=== PATIENT | male | born 1955 | race Caucasian/White ===

== ENCOUNTER 2019-12-31 00:08 | Inpatient (IN) | payer MEDICARE, MEDICAID ==
[~2019-12-31] VITALS: Ht 182.9 cm; Wt 89.4 kg
[2019-12-31 01:08] LABS: BASOPHILS % 0.8 % (0.0-2.0); EOSINOPHILS % 1.8 % (0.0-5.0); HEMATOCRIT. 29.5 % (42.0-52.0); HEMOGLOBIN. 10.1 g/dL (14.0-18.0); LYMPHOCYTES % 16.4 % (20.0-50.0); MEAN CORPUSCULAR VOLUME 93.6 fL (80.0-94.0); MONOCYTES % 9.6 % (2.0-8.0); NEUTROPHILS % 71.4 % (40.0-76.0); PLATELET 147 x1000/uL (130-400); RED BLOOD CELL COUNT 3.15 mill/uL (4.7-6.1); RED CELL DISTRIBUTION WIDTH 14.5 % (11.6-14.6)
[2019-12-31 01:09] LABS: CHLORIDE 119 mEq/L (98-107)
[2019-12-31 01:13] LABS: ETHANOL BLOOD < 10 mg/dL
[2019-12-31 02:25] LABS: CLARITY URINE CLOUDY (CLEAR); COLOR URINE YELLOW (YELLOW); KETONES URINE NEGATIVE (NEGATIVE); LEUKOCYTE ESTERASE URINE 2+ (NEGATIVE); NITRITE URINE NEGATIVE (NEGATIVE); OCCULT BLOOD URINE 3+ (NEGATIVE); PROTEIN URINE 2+ (NEGATIVE); SPECIFIC GRAVITY URINE 1.017 (1.005-1.030); UROBILINOGEN URINE 0.2 E.U./dL (0.2-1.0)
[2019-12-31 02:37] LABS: *AMPHETAMINES SCREEN URINE NEGATIVE (NEGATIVE); *BARBITURATES SCREEN URINE NEGATIVE (NEGATIVE); *BENZODIAZEPINES SCREEN URINE NEGATIVE (NEGATIVE)
[2019-12-31 02:38] LABS: *COCAINE SCREEN URINE NEGATIVE (NEGATIVE); CANNABINOID URINE SCREEN NEGATIVE (NEGATIVE); METHADONE URINE SCREEN NEGATIVE (NEGATIVE); OPIATES URINE SCREEN NEGATIVE (NEGATIVE); PHENCYCLIDINE URINE SCREEN NEGATIVE (NEGATIVE)
[2019-12-31] MEDS ORDERED: SODIUM CHLORIDE 0.9% 1,000 ML IV ONE (04:30)
[2019-12-31] MEDS ORDERED: CEFTRIAXONE 1 G PREMIX 50 ML IV ONE (04:30)
[2019-12-31] MEDS ORDERED: ACETAMINOPHEN 325MG TABLET PO PRN ×2 (10:30)
[2019-12-31] MEDS ORDERED: ONDANSETRON HCL 4MG/2ML INJ IV PRN (10:30)
[2019-12-31] MEDS ORDERED: DIPHENHYDRAMINE 50MG/ML VIAL IV PRN (10:30)
[2019-12-31] MEDS ORDERED: MAGNESIUM/ALUMINUM HYDROXIDE/SIMETHICONE 30ML UDC PO PRN (10:30)
[2019-12-31] MEDS ORDERED: HYDRALAZINE 20MG/ML VIAL IV PRN ×2 (11:00→17:00)
[2019-12-31] MEDS: DEXT 5%/0.45% NACL 1000ML 1,000 ML IV SCH (11:30)
[2019-12-31 16:10] VITALS: BP 152/79
[2019-12-31 20:51] VITALS: BP 146/80
[2020-01-01 00:08] VITALS: BP 145/74
[2020-01-01 04:00] VITALS: BP 167/86
[2020-01-01] MEDS: DEXT 5%/0.45% NACL 1000ML 1,000 ML IV SCH ×2 (05:25→10:30)
[2020-01-01 06:55] LABS: CHLORIDE 118 mEq/L (98-107)
[2020-01-01 07:04] LABS: CREATINE KINASE 525 IU/L (39-308)
[2020-01-01 07:05] LABS: HEMATOCRIT. 26.8 % (42.0-52.0); HEMOGLOBIN. 9.3 g/dL (14.0-18.0); MEAN CORPUSCULAR HEMOGLOBIN 31.9 pg (28.0-32.0); MEAN CORPUSCULAR VOLUME 91.8 fL (80.0-94.0); MEAN PLATELET VOLUME 10.4 fl (7.4-10.4); PLATELET 138 x1000/uL (130-400); RED BLOOD CELL COUNT 2.92 mill/uL (4.7-6.1); RED CELL DISTRIBUTION WIDTH 13.9 % (11.6-14.6)
[2020-01-01 07:40] LABS: HEPATITIS B SURFACE ANTIGEN NEGATIVE
[2020-01-01 08:10] LABS: HEPATITIS A AB IGM NEGATIVE (NEGATIVE)
[2020-01-01] MEDS: AMLODIPINE 10MG TABLET PO SCH (09:31)
[2020-01-01 11:15] LABS: PLATELET ESTIMATE NORMAL
[2020-01-01 20:47] VITALS: BP 144/72
[2020-01-02] VITALS: BP 137/65
[2020-01-02 04:00] VITALS: BP 169/84
[2020-01-02] MEDS: CLONIDINE 0.1MG TABLET PO PRN ×2 (04:09→17:03)
[2020-01-02 06:52] LABS: HEMOGLOBIN. 10.4 g/dL (14.0-18.0); MEAN CORPUSCULAR HEMOGLOBIN 31.8 pg (28.0-32.0); MEAN CORPUSCULAR VOLUME 92.3 fL (80.0-94.0); MEAN PLATELET VOLUME 10.4 fl (7.4-10.4); PLATELET 147 x1000/uL (130-400); RED BLOOD CELL COUNT 3.25 mill/uL (4.7-6.1); RED CELL DISTRIBUTION WIDTH 13.9 % (11.6-14.6)
[2020-01-02 08:30] VITALS: BP 155/81
[2020-01-02] MEDS: AMLODIPINE 10MG TABLET PO SCH (09:05)
[2020-01-02 09:11] LABS: HIV SCREEN 4G Non Reactive (Non Reactive); IMMUNOGLOBULIN A 228 mg/dL (61-437); IMMUNOGLOBULIN G 1879 mg/dL (603-1613); IMMUNOGLOBULIN M 152 mg/dL (20-172)
[2020-01-02 11:57] LABS: PLATELET ESTIMATE NORMAL
[2020-01-02] MEDS: DEXT 5%/0.45% NACL 1000ML 1,000 ML IV SCH ×2 (12:16→19:00)
[2020-01-02 12:30] VITALS: BP 144/88
[2020-01-02 16:00] VITALS: BP 155/90
[2020-01-02 20:00] VITALS: BP 153/87
[2020-01-03] VITALS: BP 147/79
[2020-01-03] MEDS: DEXT 5%/0.45% NACL 1000ML 1,000 ML IV SCH ×3 (03:31→17:07)
[2020-01-03 04:00] VITALS: BP 142/76
[2020-01-03 07:35] LABS: BASOPHILS % 0.7 % (0.0-2.0); EOSINOPHILS % 6.3 % (0.0-5.0); HEMATOCRIT. 26.2 % (42.0-52.0); HEMOGLOBIN. 9.2 g/dL (14.0-18.0); LYMPHOCYTES % 25.2 % (20.0-50.0); MEAN CORPUSCULAR HEMOGLOBIN 32.1 pg (28.0-32.0); MEAN CORPUSCULAR VOLUME 91.5 fL (80.0-94.0); MEAN PLATELET VOLUME 10.4 fl (7.4-10.4); MONOCYTES % 8.3 % (2.0-8.0); NEUTROPHILS % 59.5 % (40.0-76.0); PLATELET 114 x1000/uL (130-400); RED BLOOD CELL COUNT 2.87 mill/uL (4.7-6.1); RED CELL DISTRIBUTION WIDTH 13.6 % (11.6-14.6)
[2020-01-03 08:00] VITALS: BP 130/76
[2020-01-03 08:42] LABS: PHOSPHORUS 3.9 mg/dL (2.5-4.9)
[2020-01-03 09:06] LABS: GLOMERULAR BASEMENT MEMB AB 4 units (0-20)
[2020-01-03] MEDS: AMLODIPINE 10MG TABLET PO SCH (09:07)
[2020-01-03 12:00] VITALS: BP 124/68
[2020-01-03 13:10] LABS: ANTI-MYELOPEROXIDASE AB < 9.0 U/mL (0.0-9.0); ANTI-PROTEINASE 3 ABS > 100.0 U/mL (0.0-3.5)
[2020-01-03 16:00] VITALS: BP 154/89
[2020-01-03] MEDS ORDERED: MAGNESIUM 2 G PREMIX 50 ML IV NR (17:00)
[2020-01-03 20:00] VITALS: BP 141/70
[2020-01-03] MEDS: RISPERIDONE 0.5MG TABLET PO SCH (20:59)
[2020-01-03] MEDS: FAMOTIDINE 20MG TABLET PO SCH (20:59)
[2020-01-03 21:43] LABS: VITAMIN B12 SERUM 501 pg/mL (211-911)
[2020-01-04] VITALS (7 sets, daily range): BP systolic 124–167; BP diastolic 68–91
[2020-01-04] MEDS: DEXT 5%/0.45% NACL 1000ML 1,000 ML IV SCH ×2 (02:20→15:56)
[2020-01-04 06:16] LABS: PHOSPHORUS 3.9 mg/dL (2.5-4.9)
[2020-01-04 06:29] LABS: HEMATOCRIT. 26.2 % (42.0-52.0); HEMOGLOBIN. 9.3 g/dL (14.0-18.0); MEAN CORPUSCULAR HEMOGLOBIN 31.9 pg (28.0-32.0); MEAN CORPUSCULAR VOLUME 89.9 fL (80.0-94.0); PLATELET 102 x1000/uL (130-400); RED BLOOD CELL COUNT 2.91 mill/uL (4.7-6.1); RED CELL DISTRIBUTION WIDTH 13.6 % (11.6-14.6)
[2020-01-04] MEDS: AMLODIPINE 10MG TABLET PO SCH (09:14)
[2020-01-04] MEDS: RISPERIDONE 0.5MG TABLET PO SCH ×2 (09:14→20:52)
[2020-01-04] MEDS ORDERED: RISP05 MT (11:41)
[2020-01-04 14:59] LABS: ATYPICAL LYMPHOCYTES 2
[2020-01-04] MEDS ORDERED: LACTULOSE 20G/30ML UDC PO NR (15:00)
[2020-01-04 15:01] LABS: PLATELET ESTIMATE NORMAL
[2020-01-04] MEDS: FAMOTIDINE 20MG TABLET PO SCH (20:52)
[2020-01-05 04:00] VITALS: BP 150/89
[2020-01-05 06:40] LABS: HEMOGLOBIN. 10.3 g/dL (14.0-18.0); MEAN CORPUSCULAR HEMOGLOBIN 32.1 pg (28.0-32.0); MEAN CORPUSCULAR VOLUME 90.2 fL (80.0-94.0); MEAN PLATELET VOLUME 10.1 fl (7.4-10.4); PLATELET 114 x1000/uL (130-400); RED BLOOD CELL COUNT 3.22 mill/uL (4.7-6.1); RED CELL DISTRIBUTION WIDTH 13.7 % (11.6-14.6)
[2020-01-05 08:04] VITALS: BP 124/92
[2020-01-05] MEDS: RISPERIDONE 0.5MG TABLET PO SCH ×2 (09:07→21:03)
[2020-01-05] MEDS: AMLODIPINE 10MG TABLET PO SCH (09:08)
[2020-01-05 09:57] LABS: PLATELET ESTIMATE SLIGHTLY DECREASED
[2020-01-05 12:05] VITALS: BP 154/85
[2020-01-05 16:00] VITALS: BP 149/94
[2020-01-05] MEDS: CLONIDINE 0.1MG TABLET PO PRN (16:32)
[2020-01-05 20:17] VITALS: BP 147/82
[2020-01-05] MEDS: FAMOTIDINE 20MG TABLET PO SCH (21:03)
[2020-01-06 00:40] VITALS: BP 147/73
[2020-01-06 04:00] VITALS: BP 159/61
[2020-01-06 08:00] VITALS: BP 112/71
[2020-01-06] MEDS: RISPERIDONE 0.5MG TABLET PO SCH (08:17)
[2020-01-06] MEDS: AMLODIPINE 10MG TABLET PO SCH (08:18)
[2020-01-06 12:00] VITALS: BP 103/64
[2020-01-06 16:00] VITALS: BP 95/63
[2020-01-06 18:36] VITALS: BP 95/63
[2020-01-07 14:08] LABS: ATYPICAL P-ANCA <1:20 titer (Neg:<1:20); PERINUCLEAR P-ANCA <1:20 titer (Neg:<1:20)
== END 2020-01-06 21:00 | disposition home or self-care (01) | DRG 469 ==
LOC: ER 00:08 → 6WST 04:43 → EDBEDREQTM 04:44 → EDBEDREQSVC 04:44 → ENRESERV 13:35
PROVIDERS: ADMIT Internal Medicine; ATTEND Internal Medicine
DX: N17.9 Acute kidney failure, unspecified (principal); G93.41 Metabolic encephalopathy; E72.20 Disorder of urea cycle metabolism, unspecified; E83.42 Hypomagnesemia; E83.51 Hypocalcemia; F20.9 Schizophrenia, unspecified; I12.9 Hypertensive chronic kidney disease with stage 1 through stage 4 chronic kidney disease, or unspecified chronic kidney disease; N39.0 Urinary tract infection, site not specified; D64.9 Anemia, unspecified; R41.89 Other symptoms and signs involving cognitive functions and awareness; F29 Unspecified psychosis not due to a substance or known physiological condition; R74.0 Nonspecific elevation of levels of transaminase and lactic acid dehydrogenase [LDH]; N18.9 Chronic kidney disease, unspecified; Z20.828 Contact with and (suspected) exposure to other viral communicable diseases; Z59.0 Homelessness; Z78.1 Physical restraint status; Z82.49 Family history of ischemic heart disease and other diseases of the circulatory system
CPT/HCPCS: 36415; 71045; 76770; 80048; 80053; 80305; 80307; 80320; 80329; 81003; 82140; 82550; 82607; 82784; 83520; 83615; 83735; 84100; 84443; 85025; 86160; 86256; 86334; 86592; 86705; 86709; 86803; 87340; 87389; 99285; J0360; J1200; J3475; J7030; G0480; U0003-CS